=== PATIENT | female | born 1970 | race Asian ===

== ENCOUNTER 2018-08-14 06:00 | Inpatient (IN) | payer OTHER ==
[2018-08-08 18:50] VITALS: Ht 157.5 cm; Wt 91.0 kg
[~2018-08-14] VITALS: Ht 157.5 cm; Wt 91.0 kg
[2018-08-14] VITALS (21 sets, daily range): BP systolic 95–131; BP diastolic 45–64; PULSE 56–70; RESP 12–20
[2018-08-14] MEDS ORDERED: DESFLURANE 15 MIN ONE (07:00)
[2018-08-14] MEDS ORDERED: DEXAMETHASONE 4 MG/ML 5 ML INJ ONE (07:00)
--- NOTE | 2018-08-14 07:31 | PREAC ---
Date/Time of Note Date/Time of Note DATE: 08/14/18 TIME: 07:29 Anesthesia Eval and Record Evaluation Time Pre-Procedure Interview DATE: 08/14/18 TIME: 07:29 Age 48 Sex female NPO: 8 hrs Preoperative diagnosis UTERINE FIBROIDS, ENDOMETRIOSIS Planned procedure EXP LAP, SUPRACERVICAL HYSTERECTOMY, BSO Past Medical History Past Medical History: Includes Endo: Hypothyroid GI: Obesity Surgery & Anesthesia Issues No known issue Meds Anticoagulation: No Beta Rolando within 24 hr: No Reason Beta Rolando not given: Pt. not on B-Rolando No Active Prescriptions or Reported Meds Meds reviewed: Yes Allergies Coded Allergies: morphine (Verified Allergy, Severe, LOW O2 AND LOW BP, 08/14/18) Allergies Reviewed: Yes Labs/Studies Labs Reviewed: Reviewed by anesthesiologist Blood Bank Test 08/13/18 14:05 Antibody Screen NEGATIVE Blood Type A POSITIVE test: Negative Studies: ECG (NL), CXR (NAPD) Pre-procedure Exam Last vitals Vital Signs Date Temp Pulse Resp B/P (MAP) Pulse Ox O2 O2 Flow FiO2 Time Delivery Rate 08/14/18 98.2 66 18 131/61 97 Room Air 07:15 (84) Airway: Adequate mouth opening, Adequate thyromental dist Mallampati: Mallampati II Teeth: Normal Lung: Normal Heart: Normal ASA Physical Status ASA physical status: 2 Emergency: None Planned Anesthetic General/MAC: ETT Neuraxial: Spinal Planned Pain Management Parenteral pain med Pre-operative Attestations Prior to commencing anesthesia and surgery, the patient was re-evaluated, there was verification of: *The patient's identity *The results of appropriate recent lab work and preoperative vital signs *The above evaluation not changing prior to induction *Anesthetic plan, risk benefits, alternative and complications discussed with patient/family; questions answered; patient/family understands, accepts and wishes to proceed. Kd Cristina M.D. Aug 14, 2018 07:31
--- NOTE | 2018-08-14 07:31 | PREOPHP ---
DATE OF ADMISSION: 08/14/2018 HISTORY OF PRESENT ILLNESS: This is a 47-year-old lady, 0. Her last normal menstrual period was a few days prior to admission. She was admitted for exploratory laparotomy, supracervical hyste rectomy, bilateral salpingo-oophorectomy, possible TITO frozen section. The patient has a history of chronic pelvic pain for the last 1 year and getting worse up to the time of admission. She also blee ds very heavy, associated with blood clots for the last 1 year. She is known to have a submucous fib roid and endometriosis. The procedures were explained to the patient and she understood everything t otally. The risks, benefits and alternatives were discussed with her as well. PAST PERSONAL HISTORY: No history of TB, asthma. ALLERGIES: NONE. SOCIAL HISTORY: The patient has a history of anemia and thyroid problem. PAST SURGICAL HISTORY: She had a D and C done before. GYNECOLOGIC HISTORY: She had menarche at the age of 10, every 28 days interval, 3 to 4 days duration , and moderate in amount. FAMILY HISTORY: On mother's side and family history of cancer. She is 0. REVIEW OF SYSTEMS: CARDIOVASCULAR: No chest pains. RESPIRATORY: No cough. GASTROINTESTINAL: No diarrhea, no vomiting. GENITOURINARY: No dysuria. PHYSICAL EXAMINATION: GENERAL: Reveals a conscious, coherent lady in no acute distress. VITAL SIGNS: Her blood pressure 120/80, pulse rate 80 per minute, respirations 16 per minute. BREASTS, HEART AND LUNGS: Within normal limits. ABDOMEN: Soft. No organomegaly and obese. PELVIC: Revealed the cervix to be firm, uterus about 6 to 8 weeks size, and adnexa were negative for masses. RECTAL: Confirmed the pelvic findings. EXTREMITIES: No pedal edema. ADMITTING DIAGNOSES: 1. Chronic pelvic pain. 2. Menorrhagia. 3. Submucous fibroid. 4. Possible endometriosis. PLAN: The patient was planned to have the above procedure. She knows that if the ovaries are going to be taken out then she will be in menopause. She understood everything totally. The risks, benefi ts, and alternatives were discussed with her as well. Dictated By: LEANN CASTAÑEDA/NTS Conf#: [id number] DID#: [id number]
[2018-08-14] MEDS ORDERED: ROCURONIUM 50 MG INJ ONE (07:38)
[2018-08-14] MEDS ORDERED: GLYCOPYRROLATE 0.4 MG INJ ONE (07:38)
[2018-08-14] MEDS ORDERED: ONDANSETRON 4 MG INJ ONE (07:38)
[2018-08-14] MEDS ORDERED: MIDAZOLAM 1 MG/ML 2 ML INJ ONE (07:38)
[2018-08-14] MEDS ORDERED: PROPOFOL 20 ML ONE (07:38)
[2018-08-14] MEDS ORDERED: CEFAZOLIN 1 GM INJ ONE (07:38)
[2018-08-14] MEDS ORDERED: FENTAnyl 50 MCG/ML VIAL ONE (07:38)
[2018-08-14] MEDS ORDERED: NEOSTIGMINE 3 MG/3 ML SYRINGE ONE (07:38)
[2018-08-14] MEDS ORDERED: morphine SULFATE/PF (10 MG/10 ML) INJ ONE (08:04)
--- NOTE | 2018-08-14 09:47 | NUR ---
RECEIVED PATIENT FROM OR VIA [facility] POST SUPRACERVICAL HYSTERECTOMY UNDER GENERAL AND SPINAL DURAMORPH .PATIENT AROUSABLE DENIES PAIN .ON 4L NC SATURATING 100%. SR BP STABLE .INCISION TO LOWER ABDOMEN COVERED WITH ABDOMINAL DRY AND INTACT . KEPTB ON BEAR HUGGER .BLACK IN PLACED .
--- NOTE | 2018-08-14 09:55 | PAC ---
Date/Time of Note Date/Time of Note DATE: 08/14/18 TIME: 09:55 Post-Anesthesia Notes Post-Anesthesia Note Last documented vital signs Vital Signs Date Temp Pulse Resp B/P (MAP) Pulse Ox O2 O2 Flow FiO2 Time Delivery Rate 08/14/18 98.2 66 18 131/61 97 Room Air 09:55 (84) Activity: WNL Respiratory function: WNL Cardiovascular function: WNL Mental status: Baseline Pain reasonably controlled: Yes Hydration appropriate: Yes Nausea/Vomiting absent: Yes Kd Cristina M.D. Aug 14, 2018 09:55
[2018-08-14] MEDS ORDERED: HYDROmorphONE 1 MG/5 ML IV SYRINGE IV PRN ×3 (10:00)
[2018-08-14] MEDS ORDERED: ALBUTEROL 0.083% (NEB) 2.5 MG/3 ML AMP HHN PRN (10:00)
[2018-08-14] MEDS ORDERED: HYDROmorphONE 0.5 MG/0.5 ML SYG IV PRN ×2 (10:00)
[2018-08-14] MEDS ORDERED: LABETALOL HCL 20MG INJ IV PRN (10:00)
[2018-08-14] MEDS ORDERED: hydrALAzine 20 MG INJ IV PRN (10:00)
[2018-08-14] MEDS ORDERED: NALOXONE (0.4 MG/ML) INJ IV PRN (10:00)
[2018-08-14] MEDS ORDERED: FENTAnyl 50 MCG/ML VIAL IV PRN ×3 (10:00)
[2018-08-14] MEDS ORDERED: ONDANSETRON 4 MG INJ IV PRN ×2 (10:00)
[2018-08-14] MEDS ORDERED: ZOLPIDEM 5 MG TAB PO PRN (10:00)
[2018-08-14] MEDS ORDERED: NALBUPHINE HCL (10 MG/1 ML) INJ IV PRN (10:00)
[2018-08-14] MEDS ORDERED: DIPHENHYDRAMINE 50 MG INJ IV PRN ×2 (10:00)
[2018-08-14] MEDS ORDERED: OXYCODONE/ACETAMINOPHEN (5/325) TAB PO PRN ×2 (10:00)
[2018-08-14] MEDS ORDERED: EPHEDrine SULFATE 50 MG/5 ML SYG IV PRN (10:00)
[2018-08-14] MEDS ORDERED: MEPERIDINE 25 MG INJ IV PRN (10:00)
[2018-08-14] MEDS ORDERED: IPRATROPIUM (NEB) 0.5 MG/2.5 ML AMP HHN PRN (10:00)
[2018-08-14] MEDS ORDERED: TRIMETHOBENZAMIDE 100 MG/ML VIAL IM PRN ×2 (10:00)
[2018-08-14] MEDS ORDERED: MIDAZOLAM 1 MG/ML 2 ML INJ IV PRN (10:00)
--- NOTE | 2018-08-14 10:17 | SIPON ---
Date/Time of Note Date/Time of Note DATE: 08/14/18 TIME: 10:12 Operative Report Preoperative Diagnosis CHRONIC PELVIC PAIN ENDOMETRIOSIS SUBMUCOUS FIBROID Postoperative Diagnosis CHRONIC PELVIC PAIN ENDOMETRIOSIS SUBMUCOUS FIBROID PERINEAL RELAXATION Operation/Procedure Performed EXPLORATORY LAPAROTOMY SUPRACERVICAL HYSTERECTOMY BILATERAL SALPINGO OOPHORECTOMY VAGINAL VAULT SUSPENSION Surgeon see signature line pediatric physical therapy assistant DR RAEANN SAMANO Anesthesia: general Estimated blood loss: 50 - 100 ml's Transfusion Required none Specimen PARTS OF CERVIX BODY OF UTERUS BOTH TUBES AND OVARIES Grafts/Implants none Complications none LEANN EDWARDS MD Aug 14, 2018 10:17
--- NOTE | 2018-08-14 10:38 | NUR ---
REMAINS COMFORTABLE .DENIES PAIN .MOVING LOWER EXTREMITIES.
--- NOTE | 2018-08-14 10:58 | NUR ---
TRANSFERRED TO [facility]IA [facility] IN STABLE CONDITION .NOSIGNS OG BLEEDING .DRESSING TO LOWER ABDOMEN DRY AND INTACT .REPORT GIVEN TO YVETTE .FAMILY INFORMED.
[2018-08-14] MEDS: LACTATED RINGER'S 1,000 ML IV SCH ×2 (11:19→17:51)
[2018-08-14] MEDS: KETOROLAC 30 MG INJ IV PRN ×2 (12:59→18:53)
--- NOTE | 2018-08-14 16:54 | NUR ---
End of shift note Report given to Margarita Castillo for continuation of care. Patient continues to rest comfortably in bed, family friend Ct at the bedside. Patient remains NPO with ice chips, on IVF Lr infusing at 125ml/hr. Patient c/o pain and Toradol IV given. Patient c/o itching and Benadryl IV given. Garcia catheter remains patent and patient maintained on bedrest at this time. Patient educated on medication side effect sheet and safety precautions. Patient encouraged to use the call bal for assistance and call bal remains within reach. Patient remains stable at this time.
--- NOTE | 2018-08-14 16:55 | NUR ---
ENDORSEMENT ASSUMED PATIENT CARE, REPORT GIVEN BY SPEEDY OLEA, REPORT DONE AT BEDSIDE, EXPLAINED TO PATIENT CHANGE OF NURSING CARE. PATIENT IN BED, PATIENT ORIENTATED TO ROOM, VSS. CALL LIGHT WITHIN REACH. IV FLUIDS RUNNING, BALCK DRAINING CLEAR URINE. WILL CONTINUE TO MONITOR.
[2018-08-15 01:31] VITALS: BP 120/57; PULSE 66; RESP 18
[2018-08-15] MEDS: LACTATED RINGER'S 1,000 ML IV SCH ×3 (02:45→18:54)
--- NOTE | 2018-08-15 04:29 | NUR ---
End of shift Note: AOX4, Pt is NPO except with ice chips. Bedrest until 6 am, Garcia catheter will removed at 6 am and abdominal dressing will changed at 6 am today as Md order. Pt takes Toradol for pain. Plan or care will be endorsed to morning nurse. Safety precautions maintained, call light within reach, low bed position and hourly rounding.
[2018-08-15] MEDS: BISACODYL 10 MG SUPP PR ONE ×2 (06:00→06:09)
[2018-08-15] MEDS ORDERED: MAGNESIUM HYDROXIDE 30ML CUP PO ONE ×2 (06:00→17:00)
[2018-08-15] MEDS: KETOROLAC 30 MG INJ IV PRN (06:10)
[2018-08-15 07:47] VITALS: BP 119/59; PULSE 71; RESP 18
[2018-08-15] MEDS ORDERED: POLYETHYLENE GLYCOL 17 GM PACKET PO ONE (11:00)
[2018-08-15] MEDS ORDERED: OXYCODONE/ACETAMINOPHEN (5/325) TAB PO PRN (11:00)
[2018-08-15] MEDS ORDERED: ONDANSETRON 4 MG INJ IV PRN (11:00)
[2018-08-15] MEDS: IBUPROFEN 800 MG TAB PO PRN ×2 (11:28→18:26)
[2018-08-15 14:00] VITALS: BP 116/62; PULSE 72; RESP 18
[2018-08-15] MEDS: OXYCODONE/ACETAMINOPHEN (5/325) TAB PO PRN ×2 (16:20→20:46)
[2018-08-15] MEDS ORDERED: BISACODYL 10 MG SUPP PR ONE (17:00)
[2018-08-15 19:10] VITALS: BP 114/55; PULSE 68; RESP 18
--- NOTE | 2018-08-15 19:30 | NUR ---
End of shift note Patient remains alert and oriented x4, resting comfortably in bed. Patient received two doses of Motrin and 1 dose of Percocet po prn for pain. Patient was noted ambulating throughout the day in the hallway, has been able to have several BMs. Patient was upgraded to clear liquids and has been able to tolerate the po intake, no c/o n/v. Patient continues to receive LR infusing at 125ml/hr as per MD order. Dressing to lower abdomen noted dry and intact, changed by night nurse Ramonita. Patient was able to void several times throughout the shift after waters catheter removal. Patient was encouraged to use the call bal for assistance and call bal remains within reach.
[2018-08-16 00:05] VITALS: BP 127/61; PULSE 76; RESP 18
[2018-08-16] MEDS: LACTATED RINGER'S 1,000 ML IV SCH (03:00)
[2018-08-16] MEDS: IBUPROFEN 800 MG TAB PO PRN ×2 (06:41→16:25)
--- NOTE | 2018-08-16 07:17 | OPR ---
DATE OF OPERATION: 08/14/2018 PREOPERATIVE DIAGNOSES: 1. Chronic pelvic pain. 2. Submucosal fibroid. 3. Endometriosis. POSTOPERATIVE DIAGNOSES: 1. Chronic pelvic pain. 2. Submucosal fibroid, benign. 3. Endometriosis. 4. Frozen section was benign submucous fibroid. 5. Perineal relaxation. SURGEON: Leann Car MD MANUGRAPHER: Robin Ta MD ANESTHESIA: General. ANESTHESIOLOGIST: Dr. Cristina. OPERATION PERFORMED: Exploratory laparotomy, supracervical hysterectomy and bilateral salpingo-oopho rectomy and vaginal vault suspension and electrocautery of endometriosis. OPERATIVE TECHNIQUE: Under general anesthesia, the patient was prepped and draped in the usual fashi on for abdominal surgery. After checking for the effect of the anesthesia, a Pfannenstiel incision, 12 cm skin incision was performed. The incision was carried from the skin up to the fascia. Upon op ening the skin up to the fascia, small blood vessels were noted to be oozing and these were all caute rized. Fascia was opened transversely followed by splitting the muscles vertical and the peritoneum vertically. Upon opening the abdominal cavity, the self-retaining retractor was put in place, the bl adder blade was put in place. The bowels were packed away from the operative field with the aid of 6 wet lap sponges and the upper blade was put in place. Then, tenaculum was used to pull out the uter us from the pelvic cavity. The pelvis was noted to be very deep. Then, two 18 Lj's were placed, one at the paratubal and paraovarian ligament for traction. Then, the left round ligament was grasp ed with 2 Lj's and cut. A stick tie with 0 Vicryl was used and tied. The left broad ligament wa s skeletonized for the development of the bladder flap. Then, the infundibulopelvic ligament was gra sped with 2 Steph clamps and pulled back with a straight Lj and cut. At first a free tie with 0 Vicryl was used followed by Steph suture. Bleeders were checked, and there was no bleeding noted. Same thing was done on the right side. The right round ligament was grasped with 2 Lj's and cut . A stick tie with 0 Vicryl was used and the right broad ligament was skeletonized for the developme nt of the bladder flap. The right ligament was grasped with 2 Steph clamps and pulled back with a s traight Lj and cut. First a free tie with 0 Vicryl was used followed by Steph suture. Bleeders were checked, and there was no bleeding noted. Once again, the broad ligament on both sides was ske letonized for the development of the bladder flap. Then, the left uterine vessels were brought to vi ew. The left uterine vessels were grasped with 2 Steph clamps and pulled back with a straight Koche r and cut. A stick tie with 0 Vicryl was used on its clamp. Same thing was done on the right side. Bleeders were checked, and there was no bleeding noted. Once again, the bladder was from the cervix by sharp and blunt dissection. About 2 Lj's were placed at its paracervical tissue on the left and right side and on each Lj the tissue was cut and a stick tie with 0 Vicryl was used . Bleeders were checked, and there was no bleeding noted. As mentioned, the pelvis was noted to be very deep. Then the body of the uterus was excised. The remaining cervix was grasped with 2 single tooth tenacula. Once again, the bladder was from the cervix by sharp and blunt dissection. About 4 more Lj's were placed at its paracervical tissue on the left and right sides and on eac h Lj the tissue was cut and a stick tie with 0 Vicryl was used. Bleeders were checked, and there was no bleeding noted. A piece of cervix was excised. Then, the remaining cervix was grasped with 2 single tooth tenacula. Once again, the bladder was from the cervix by sharp and blunt di ssection. About 3 more Lj's were placed at its paracervical , the left and right side and on each Lj the tissue was cut and tied with 0 Vicryl used. Bleeders were checked, and there was no bleeding noted. Another piece of cervix was excised and the remaining cervix was grasped with 2 s niranjan tooth tenacula. The mucosa of the remaining cervix was cauterized. Then, the remaining cervix was closed in 3 layers using 0 Vicryl continuous suture used. The right angle of the cervix was sut ured with the right paracervical tissue and after checking for any bleeders, which there was none and then tied with the right round ligament for vaginal vault suspension. Same thing was done on the le ft side. Then, irrigation was done to check for any bleeders and there was no bleeding noted. All t he stumps were checked for any bleeders and there was no bleeding noted. The raw area was covered wi th Surgicel. After correct sponge count, needle count and instrument count as confirmed by the photographic technician and mainspring reverse winder, the abdomen was closed in the usual fashion using 0 Vicryl for the peritoneum, 0 Vicryl for the muscles, for the fascia 0 Vicryl continuous stitch was used followed by few figure-o f-eight sutures for the subcutaneous tissue. It was closed with 3-0 Vicryl and the skin was closed w ith 3-0 Vicryl subcuticular suture used. The patient tolerated the procedure well. Estimated blood loss about 200 mL. Vital signs were stable during and after the procedure. Dictated By: LEANN CAR MD NS/NTS Conf#: [id number] DID#: [id number] CC: LEANN CAR MD;*EndCC*
--- NOTE | 2018-08-16 08:02 | NUR ---
END OF SHIFT NOTE: AOX4. Given motrin and percocet for pain prn. OOB with supervision.Diet was advance to soft diet for breakfast and regular diet for lunch. IVF d/c this morning. Abdominal dressing C/D/I. Voiding bathroom. Safety precautions maintained, call light within reach, low bed position.
[2018-08-16 08:39] VITALS: BP 133/63; PULSE 60; RESP 18
--- NOTE | 2018-08-16 10:42 | NUR ---
PATIENT TOLERATED SOFT DIET WITH BREAKFAST,DIET CHANGED FOR REGHLAR DIET WITH LUNCH.PATIENT DENIES ANY POST PAIN.NO VAGINAL BLEEDING REPORTED.
--- NOTE | 2018-08-16 14:18 | NUR ---
PATIENT ASSISTED WITH SHOWER AND DRESSING CHANGED ON INCISION SITE WITH TEGADERM DRESSING
[2018-08-16 14:55] VITALS: BP 153/69; PULSE 66; RESP 18
--- NOTE | 2018-08-16 16:54 | NUR ---
AA,ORIENTED X4.PAIN CONTROLLED WITH MOTRIN WITH ADEQUATE PAIN CONTROL.POST OP INCISION WITH STERI STRIP DRESSING CDI,NO VAGINAL BLEEDING NOTED.BM X1 TODAY.DIET WAS ADVANCED TO REGULAR CELINA WELL.
[2018-08-16 20:00] VITALS: BP 131/54; PULSE 68; RESP 18
[2018-08-16] MEDS ORDERED: IBUP-1542 PO ×2 (20:22→20:23)
--- NOTE | 2018-08-16 20:45 | NUR ---
Dr. Car notified patient complained of dizziness, mentioned her BP was low this am and she has been ambulating more often this pm. Latest V/S stable when checked. RN also relayed latest lab results (hgb, hct and WBC) as inquired by physician. MD has spoken to patient over the phone and decided to discharge patient tonight. Telephone order received from surgeon to discharge patient home now and continue current meds. Patient verbalized she has Motrin and [place] meds from home and was instructed by Dr. Car to set up appointment with her in 2 weeks.
[2018-08-16 20:50] VITALS: BP 127/59; PULSE 72; RESP 18
--- NOTE | 2018-08-16 21:00 | NUR ---
Discharge instructions provided to patient and she verbalized understanding. Packet received including medication side effects list. Steri strips to abdomen remain C/D/I. No pain complaints made at this time. IV access discontinued and she verbalized she feels fine and not dizzy anymore but feels she probably lacks sleep. Picked up by friend to be brought home and assisted via wheelchair en route to discharge area. No pressure sores assessed prior to discharge and no valuables and belongings left, witnessed by both RN and 4W [employer] TUTOR delegated to her care.
--- NOTE | 2018-08-27 09:04 | DS ---
DATE OF ADMISSION: 08/14/2018 DATE OF DISCHARGE: 08/16/2018 This is a 48-year-old lady, 0, admitted for exploratory laparotomy, supracervical hysterectom y, bilateral salpingo-oophorectomy, possible TITO and frozen section. HISTORY OF PRESENT ILLNESS: See dictated history and physical. PHYSICAL EXAMINATION: See dictated history and physical. ADMITTING DIAGNOSES: 1. Chronic pelvic pain. 2. Menorrhagia. 3. Submucous fibroid, rule out endometriosis. HOSPITAL COURSE: The patient underwent an exploratory laparotomy, supracervical hysterectomy, bilate ral salpingo-oophorectomy, vaginal vault suspension and of endometriosis. POSTOPERATIVE DIAGNOSES: 1. Submucous fibroid. 2. Endometriosis. 3. Benign submucosal fibroid for frozen section, peritoneal relaxation and chronic pelvic pain. She tolerated the procedure well. She did have good postoperative course. She has good bowel movement postoperatively. She has less pain on the second postoperative day, she was discharged home on gener al diet and activity was restricted. She was counseled. She was instructed. She was told to come b ack to the clinic in 2 weeks. She was given prescription for pain. The hematocrit on discharge is 3 4.1, hemoglobin 10.7. The pathology report shows polypoid leiomyoma. FINAL DIAGNOSES: 1. Chronic pelvic pain. 2. Menorrhagia. 3. Submucous fibroid. 4. Endometriosis. 5. Perineal relaxation. Dictated By: LEANN EDWARDS MD NS/NTS Conf#: [id number] DID#: [id number] CC: LEANN EDWARSD MD;*End*
== END 2018-08-16 21:00 | disposition home or self-care (01) | DRG 743 ==
LOC: REC 06:00 → MS1 10:59
PROVIDERS: ADMIT Obstetrics & Gynecology; ATTEND Obstetrics & Gynecology
PROC: 0UT70ZZ Resection of Bilateral Fallopian Tubes, Open Approach (ICD-10-PCS; 2018-08-14)
PROC: 0UT20ZZ Resection of Bilateral Ovaries, Open Approach (ICD-10-PCS; 2018-08-14)
PROC: 0USG0ZZ Reposition Vagina, Open Approach (ICD-10-PCS; 2018-08-14)
PROC: 0UBC0ZZ Excision of Cervix, Open Approach (ICD-10-PCS; 2018-08-14)
PROC: 0UT90ZL Resection of Uterus, Supracervical, Open Approach (ICD-10-PCS; principal; 2018-08-14 07:30)
DX: N92.0 Excessive and frequent menstruation with regular cycle (principal); R10.2 Pelvic and perineal pain; N80.9 Endometriosis, unspecified; Z68.36 Body mass index [BMI] 36.0-36.9, adult; D25.0 Submucous leiomyoma of uterus; N81.89 Other female genital prolapse
CPT/HCPCS: 80053; 84702; 85025; 86850; 86900; 86901; 87086; 88305; J0690; J1100; J1200; J1885; J2250; J2274; J2405; J2710; J3010; J7120